=== PATIENT | male | born 1975 | race African-American/Black ===

== ENCOUNTER → 2018-08-21 | Emergency (ER) | payer BC ==
[~2018-08-21] VITALS: Ht 170.2 cm; Wt 84.1 kg
[~2018-08-21] MED LIST: BACLOFEN20 M1 PO; VOLTAREN75 MG PO
[2018-08-21 10:16] VITALS: BP 153/79; Ht 170.2 cm; Wt 84.1 kg
== END | disposition home or self-care (01) ==
LOC: D.ER 10:11
DX: M25.551 Pain in right hip (principal); M79.18 Myalgia, other site; W18.30XA Fall on same level, unspecified, initial encounter; Y93.89 Activity, other specified; Y92.89 Other specified places as the place of occurrence of the external cause; I10 Essential (primary) hypertension

== ENCOUNTER 2020-01-24 23:18 | Observation (INO) | payer MEDICAID ==
[~2020-01-24] VITALS: Ht 170.2 cm; Wt 86.4 kg
--- NOTE | 2020-01-24 23:50 | NUR ---
PT GIVEN SANDWHICH TRAY AND WATER.
--- NOTE | 2020-01-25 | NUR ---
DR. MCGUIRE NOTIFIED AND REVIEWED PT'S BEHAVIOR AND ASSESSMENT RESULTS. PT IS A LOW DEVAN PER DR. MCGUIRE. DR. MCGUIRE STATED TO GIVE RESOURCES TO PT AT TIME OF DISCHARGE. NO FURTHER ORDERS AT THIS TIME. ATTEMPTED TO REVIEW RESOURCES WITH PT BUT HE IS ANXIOUS WITH VERY RACING AND TANGENT THOUGHTS. NOT ABLE TO REDIRECT AND REFUSED RESOURCES.
[2020-01-25 00:27] LABS: BASOPHILS 0.1 % (0-2); EOSINOPHILS 0 % (0-7); HEMATOCRIT 42.9 % (42.0-54.0); HEMOGLOBIN 14.9 g/dL (13.5-17.5); IMMATURE GRANULOCYTES 0.4 % (0-5); LYMPHOCYTES 10.6 % (15-50); MCH 33.1 pg (26.0-34.0); MCHC 34.7 g/dL (31.0-37.0); MCV 95.3 fL (80.0-100.0); MEAN PLATELET VOLUME 9.2 fL (7.4-10.4); MONOCYTES 8.1 % (2-11); NEUTROPHILS 80.8 % (40-80); PLATELET COUNT 368 10x3/uL (130-400); RDW 12.9 % (11.5-14.5); WBC 11.3 10x3/uL (4.8-10.8)
[2020-01-25 00:34] LABS: CALC OSMOLALITY 275 mosm/kg (275-300); CALCIUM 10.3 mg/dL (8.5-10.1); CHLORIDE - SERUM 99 mmol/L (98-107); CREATININE - SERUM 2.4 mg/dL (0.6-1.3); GLUCOSE 162 mg/dL (74-106); POTASSIUM - SERUM 3.3 mmol/L (3.5-5.1); SODIUM 134 mmol/L (136-145); UREA NITROGEN 23 mg/dL (7-18); eGFR NON AFRICAN AMERICAN 31 mL/min (90-120)
[2020-01-25 01:01] LABS: ALBUMIN 4.8 g/dL (3.4-5.0); ALKALINE PHOSPHATASE 79 U/L (30-120); ALT (SGPT) 20 U/L (10-68); BILIRUBIN - TOTAL 0.84 mg/dL (0.2-1.3); CREATINE KINASE 285 UL (21-232); PROTEIN - SERUM 9.6 g/dL (6.4-8.2)
[2020-01-25 01:02] LABS: CKMB 2.4 U/L (0.0-3.6)
--- NOTE | 2020-01-25 01:32 | NUR ---
PT RESTING NOW WITH EYES CLOSED. RESPIRATIONS EVEN AND UNLAB. NO DISTRESS NO JERICA.
--- NOTE | 2020-01-25 03:30 | NUR ---
CON'T TO REST QUIETLY WITH EYES CLOSED. RESPIRATIONS EVEN AND UNLAB.
[2020-01-25 06:38] VITALS: BP 132/95
--- NOTE | 2020-01-25 06:42 | NUR ---
PT CON'T TO REST QUIETLY WITH EYES CLOSED. AWAKENS, BUT STILL TOO GROGGY TO GIVE URINE. V/S STABLE. BREAKFAST TRAY ORDERED.
--- NOTE | 2020-01-25 06:59 | NUR ---
REPORT TO GONZALO PALMER.
[2020-01-25 07:15] VITALS: BP 114/60
[2020-01-25 09:09] LABS: BILIRUBIN NEGATIVE (NEGATIVE); KETONE SMALL mg/dL (NEGATIVE); NITRITE NEGATIVE (NEGATIVE); UROBILINOGEN NORMAL mg/dL (< 2)
[2020-01-25 09:13] LABS: BACTERIA MODERATE /HPF (NONE SEEN); WHITE CELLS - URINE 0-5 HPF (0-1)
[2020-01-25 09:15] LABS: UDS - AMPHET NEGATIVE QUAL (NEGATIVE); UDS - BARB NEGATIVE QUAL (NEGATIVE); UDS - BENZO NEGATIVE QUAL (NEGATIVE); UDS - COCAINE NEGATIVE QUAL (NEGATIVE); UDS - OPIATE NEGATIVE QUAL (NEGATIVE); UDS - PCP NEGATIVE QUAL (NEGATIVE); UDS - THC POSITIVE QUAL (NEGATIVE)
[2020-01-25 10:58] LABS: CREATINE KINASE 271 UL (21-232)
[2020-01-25 11:00] LABS: TROPONIN-I < 0.017 ng/mL (0.000-0.060)
[2020-01-25 12:00] VITALS: BP 122/64
[2020-01-25 14:15] VITALS: BP 119/69; Ht 170.2 cm; Wt 86.4 kg
[2020-01-25 15:00] LABS: APTT 25.2 SECONDS (22.8-39.4); INR 1.09 (0.85-1.17)
[2020-01-25 17:11] LABS: CKMB 3.5 U/L (0.0-3.6); CREATINE KINASE 338 UL (21-232)
[2020-01-25 17:13] LABS: TROPONIN-I < 0.017 ng/mL (0.000-0.060)
--- NOTE | 2020-01-25 18:59 | NUR ---
PATIENT IN BED WITH NO COMPLAINTS OR SIGNS OF DISTRESS. IV INTACT. CALL LIGHT WITHIN REACH. TELE ON.
[2020-01-25 22:11] VITALS: BP 146/77
[2020-01-25 22:50] LABS: CKMB 2.6 U/L (0.0-3.6); CREATINE KINASE 398 UL (21-232)
[2020-01-25 22:56] LABS: TROPONIN-I < 0.017 ng/mL (0.000-0.060)
[2020-01-26 01:38] VITALS: BP 145/79
[2020-01-26 05:43] VITALS: BP 127/85
[2020-01-26 06:54] LABS: BASOPHILS 0.2 % (0-2); EOSINOPHILS 1.6 % (0-7); HEMATOCRIT 36.3 % (42.0-54.0); HEMOGLOBIN 12.2 g/dL (13.5-17.5); IMMATURE GRANULOCYTES 0.2 % (0-5); LYMPHOCYTES 24.4 % (15-50); MCH 33.1 pg (26.0-34.0); MCHC 33.6 g/dL (31.0-37.0); MEAN PLATELET VOLUME 9.1 fL (7.4-10.4); MONOCYTES 8.9 % (2-11); NEUTROPHILS 64.7 % (40-80); PLATELET COUNT 297 10x3/uL (130-400); RBC 3.69 10x6/uL (4.20-6.10); RDW 12.9 % (11.5-14.5)
[2020-01-26 06:55] LABS: MCV 98.4 fL (80.0-100.0); WBC 8.1 10x3/uL (4.8-10.8)
[2020-01-26 07:05] LABS: BILIRUBIN - TOTAL 0.48 mg/dL (0.2-1.3); CALCIUM 7.8 mg/dL (8.5-10.1); CARBON DIOXIDE 23.5 mmol/L (21.0-32.0); MAGNESIUM - SERUM 2.1 mg/dL (1.8-2.4)
[2020-01-26 07:14] LABS: ANION GAP 11.4 mmol/L (8-16); CREATININE - SERUM 1.4 mg/dL (0.6-1.3); POTASSIUM - SERUM 3.9 mmol/L (3.5-5.1); PROTEIN - SERUM 6.6 g/dL (6.4-8.2)
--- NOTE | 2020-01-26 07:54 | NUR ---
LAYING IN BED WATCHING TV. NO ACUTE DISTRESS NOTED. DENIES PAIN AT THIS TIME. BED IN LOWEST POSITION, LOCKED, SIDE RAILS UP X2. CALL LIGHT WITHIN REACH. NEEDS ANTICIPATED AND MET. WILL CONTINUE TO MONITOR.
[2020-01-26 09:11] VITALS: BP 138/84
[2020-01-26 12:25] VITALS: BP 134/80
[2020-01-26 14:48] LABS: CREATINE KINASE 393 UL (21-232)
[2020-01-26 14:50] LABS: CKMB 2.1 U/L (0.0-3.6)
[2020-01-26 16:04] VITALS: BP 137/87
--- NOTE | 2020-01-26 19:32 | NUR ---
ASSUMED CARE OF PATIENT AT 1900, PATIENT AAOX4, RESTING QUIETLY IN BED WATCHING TV, NO DISTRESS NOTED, DENIES NEEDS AT THIS TIME, WILL CONTINUE TO MONITOR PATIENT, CALL LIGHT WITHIN REACH
[2020-01-26 20:00] VITALS: BP 156/87
[2020-01-27] VITALS: BP 135/84
[2020-01-27 04:00] VITALS: BP 136/76
[2020-01-27 05:38] LABS: BASOPHILS 0.3 % (0-2); EOSINOPHILS 2.5 % (0-7); HEMATOCRIT 35.9 % (42.0-54.0); HEMOGLOBIN 12.1 g/dL (13.5-17.5); IMMATURE GRANULOCYTES 0.1 % (0-5); LYMPHOCYTES 30.1 % (15-50); MCH 32.7 pg (26.0-34.0); MCHC 33.7 g/dL (31.0-37.0); MEAN PLATELET VOLUME 9.2 fL (7.4-10.4); MONOCYTES 8.3 % (2-11); NEUTROPHILS 58.7 % (40-80); PLATELET COUNT 284 10x3/uL (130-400); RDW 12.3 % (11.5-14.5); WBC 6.7 10x3/uL (4.8-10.8)
[2020-01-27 05:58] LABS: ALBUMIN 2.8 g/dL (3.4-5.0); ALKALINE PHOSPHATASE 59 U/L (30-120); ALT (SGPT) 15 U/L (10-68); BILIRUBIN - TOTAL 0.45 mg/dL (0.2-1.3); CALC OSMOLALITY 273 mosm/kg (275-300); CALCIUM 7.7 mg/dL (8.5-10.1); CHLORIDE - SERUM 107 mmol/L (98-107); CREATININE - SERUM 1.1 mg/dL (0.6-1.3); GLUCOSE 113 mg/dL (74-106); POTASSIUM - SERUM 3.9 mmol/L (3.5-5.1); PROTEIN - SERUM 6.3 g/dL (6.4-8.2); SODIUM 136 mmol/L (136-145); eGFR NON AFRICAN AMERICAN 76 mL/min (90-120)
[2020-01-27 06:10] LABS: UREA NITROGEN 15 mg/dL (7-18)
[2020-01-27 08:36] VITALS: BP 147/89
[2020-01-27] MEDS ORDERED: NORVASC2.5 MG PO (08:48)
[2020-01-27] MEDS ORDERED: NICODERM CQ1 EAC3 TRANSDERM (08:48)
[2020-01-27] MEDS ORDERED: DESERYL PO (08:48)
--- NOTE | 2020-01-27 09:10 | CN ---
PATIENT NAME:KRISTINA BARNETT MEDICAL RECORD: [id number] : 71 LOCATION:D[facility] ADMIT DATE: 01/25/20 ACCOUNT: [id number] CONSULTING PHYSICIAN: OSMAR MCGUIRE MD REFERRING PHYSICIAN: NAUN ADDISON MD DATE OF CONSULTATION: 01/26/2020 IDENTIFYING DATA: The patient is 44 years old. He was admitted to the hospital because of flight of ideas. CHIEF COMPLAINT: "I need something for my nerves and to help me sleep." HISTORY OF PRESENT ILLNESS: The patient says he came to the Emergency Room because he wanted to see a psychiatrist. There is mention of him having psychotic symptoms, but no specifics and I certainly do not observe any and he denies such symptoms. He is logical and goal directed. His mood is euthymic. His affect appropriate. Thought processes are well connected and his mood and affect are normal. He denies that he would seek to harm himself or others. He adamantly denies that he would need any kind of substance abuse or inpatient's psychiatric treatment. He says he came to the Emergency Room because he wanted to see a psychiatrist and that he is very glad I am there. He tells me that he wants me to prescribe Xanax or Klonopin for his anxiety and insomnia. ASSESSMENT: Adjustment disorder with mixed emotional features. PLAN: The patient is not psychotic. He is not dangerous and there is no evidence of that. I do not think it is in his best interest to smoke marijuana and I have told him to stop doing so. With regards to benzodiazepine, I would not prescribe this. I do think he needs an antidepressant, but a low dose of trazodone might assist with his insomnia. When asked about his acute kidney injury, he does not know what I am talking about. He did have a BUN and creatinine that were elevated, but again he says he does not know anything about this. 50-100 mg of trazodone is reasonable for him. I will check on him in a few days if he is still hospitalized and follow up with her primary care physician is certainly appropriate and if he feels that he needs to see a psychiatrist on an outpatient basis that is unreasonable, I would refer him to the [facility]. TRANSINT:[id number] Voice Confirmation ID: [id number] DOCUMENT ID: [id number] OSMAR MCGUIRE MD at 0910 CC: [id number] DICTATION DATE: 01/26/20 1626 HEATER PLANER OPERATOR: 01/27/20 0158 ADM IN [facility] [address] [id number]
--- NOTE | 2020-01-27 10:42 | NUR ---
PT IS OUT OF ROOM WALKING AROUND THE FLOOR FOR EXERCISE. NO ACUTE DISTRESS NOTED.
--- NOTE | 2020-01-27 11:57 | NUR ---
REVIEWED DISCHARGE AND EDUCATION. RECEIVED WELL. NO ACUTE DISTRESS NOTED. CALLED SON TO PICK HIM UP. REMOVED PIV- TOLERATED WELL, FULLY INTACT.
--- NOTE | 2020-01-27 12:10 | MORECARE ---
CASE MANAGEMENT DISCHARGE SUMMARY PATIENT: KRISTINA BARNETT UNIT: [id number] ADM DATE: 01/25/20 AGE: 44 : 71 SEX: M ROOM/BED: D.2215 AUTHOR: KAEL HALL PHYSICIAN: REFERRING PHYSICIAN: NAUN ADDISON MD DATE OF SERVICE: 01/27/20 Discharge Plan Patient Name: KRISTINA BARNETT [facility] [facility] 1975 Planned Disposition: Home or Self Care Anticipated Discharge Date: Discharge Date: Expected LOS: Initial Reviewer: [email or web address] Initial Review Date: 01/25/2020 Generated: 01/27/20 1:09 pm Comments DCP- Discharge Planning Updated by [email or web address]: Genet Gerson on 01/27/20 11:[address] CM MET WITH PATIENT ABOUT DISCHARGE PLAN, HE STATED TAHT HE IS STAYING WITH HIS SIN AND FEELS SAFE THERE, HE IS STARTING OVER FROM A PERSONAL PROBLEM,. 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
[2020-01-27 12:39] VITALS: BP 183/102
--- NOTE | 2020-01-28 14:51 | MORECARE ---
CASE MANAGEMENT DISCHARGE SUMMARY PATIENT: KRISTINA BARNETT UNIT: [id number] ADM DATE: 01/25/20 AGE: 44 : 71 SEX: M ROOM/BED: D.2215 AUTHOR: KAEL HALL PHYSICIAN: REFERRING PHYSICIAN: NAUN ADDISON MD DATE OF SERVICE: 01/28/20 Discharge Plan Patient Name: KRISTINA BARNETT Facility: [facility]:[place] : 1975 Planned Disposition: Home or Self Care Anticipated Discharge Date: Discharge Date: 01/27/2020 Expected LOS: Initial Reviewer: [email or web address] Initial Review Date: 01/25/2020 Generated: 01/28/20 3:51 pm Comments DCP- Discharge Planning Updated by [email or web address]: Genet Nieto on 01/27/20 11:[address] CM MET WITH PATIENT ABOUT DISCHARGE PLAN, HE STATED TAHT HE IS STAYING WITH HIS SIN AND FEELS SAFE THERE, HE IS STARTING OVER FROM A PERSONAL PROBLEM,. 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 [address] END OF REPORT
== END 2020-01-27 13:41 | disposition home or self-care (01) ==
LOC: D.ER 23:18 → D.EDHOLD 01-25 10:06 → D.MS 01-25 10:06 → OBSVTIME 01-25 10:07 → D.MS 01-25 12:06
PROVIDERS: Emergency Medicine; Family Medicine; ADMIT Family Medicine; ATTEND Family Medicine
DX: F23 Brief psychotic disorder (principal); N17.9 Acute kidney failure, unspecified; I10 Essential (primary) hypertension; J45.909 Unspecified asthma, uncomplicated; F12.90 Cannabis use, unspecified, uncomplicated; D72.829 Elevated white blood cell count, unspecified; E87.1 Hypo-osmolality and hyponatremia; E87.6 Hypokalemia; E83.51 Hypocalcemia; R73.9 Hyperglycemia, unspecified; R79.89 Other specified abnormal findings of blood chemistry; D64.9 Anemia, unspecified